=== PATIENT | female | born 1985 | race Caucasian/White ===

== ENCOUNTER 2017-02-15 17:03 | Emergency (ER) | payer OTHER ==
[~2017-02-15] VITALS: Ht 165.1 cm; Wt 77.1 kg
[~2017-02-15 17:03] MED LIST: ATIVAN1 MG PO; CIPRO500 MG PO; FAMVIR500 MG PO; FLEXERIL5 MG PO; Fioricet 325 MG1 TAB PO; HYDROCODONE BIT1 T11 PO; KLONOPIN0.5 MG PO; Motrin,Rufen800 MG PO; NAPROSYN500 MG PO; Orphenadrine C100 MG PO; PYRIDIUM100 MG PO; VOLTAREN50 M1 PO
== END 2017-02-15 17:45 | disposition home or self-care (01) ==
LOC: ED 17:03
DX: H60.392 Other infective otitis externa, left ear (principal); F17.200 Nicotine dependence, unspecified, uncomplicated

== ENCOUNTER 2017-07-13 14:09 | Emergency (ER) | payer OTHER ==
[~2017-07-13] VITALS: Ht 165.1 cm; Wt 78.9 kg
[2017-07-13] MEDS ORDERED: ACYCLOVIR800 MG PO ×2 (14:52→14:53)
[2017-07-13] MEDS ORDERED: NORCO 5-325 TA1 EACH PO (14:52)
== END 2017-07-13 14:58 | disposition home or self-care (01) ==
LOC: ED 14:09
DX: B02.9 Zoster without complications (principal); F17.200 Nicotine dependence, unspecified, uncomplicated; Z98.890 Other specified postprocedural states

== ENCOUNTER 2019-09-13 21:18 | Emergency (ER) | payer OTHER ==
[~2019-09-13] VITALS: Ht 165.1 cm; Wt 81.6 kg
[~2019-09-13 21:18] MED LIST changes: +ACYCLOVIR800 MG PO; +NORCO 5-325 TA1 EACH PO
== END 2019-09-13 23:23 | disposition home or self-care (01) ==
LOC: ED 21:18
DX: R51 Headache (principal); I10 Essential (primary) hypertension; F41.9 Anxiety disorder, unspecified; R11.0 Nausea

== ENCOUNTER 2020-01-23 14:26 | Emergency (ER) | payer OTHER ==
[~2020-01-23] VITALS: Ht 165.1 cm; Wt 81.6 kg
[2020-01-23 15:34] LABS: BASO # 0.1 10*3/uL (0.0-0.1); BASO % 0.5 % (0.0-1.0); EOS % 0.2 % (1.0-4.0); HEMATOCRIT 42.9 % (37.0-47.0); LYMPH # 1.6 10*3/uL (1.3-4.4); LYMPH % 15.3 % (27.0-41.0); MEAN CELL VOLUME 90.1 fl (81.0-99.0); MEAN CORPUSCULAR HGB 29.6 pg (27.0-31.0); MEAN CORPUSCULAR HGB CONC 32.9 g/dl (33.0-37.0); MEAN PLATELET VOLUME 11.3 fl (9.6-12.3); MONO # 0.9 10*3/uL (0.1-1.0); MONO % 8.2 % (3.0-9.0); NEUT # 8.1 10*3/uL (2.3-7.9); NEUT % 75.5 % (47.0-73.0); PLATELET COUNT AUTOMATED 232 10*3/uL (130-400); RED BLOOD COUNT 4.76 10*6/uL (4.10-5.10); WHITE BLOOD COUNT 10.7 10*3/uL (4.8-10.8)
[2020-01-23 15:34] LABS: BILIRUBIN NEGATIVE (NEGATIVE); BLOOD NEGATIVE (NEGATIVE); CLARITY SL CLOUDY (CLEAR); COLOR YELLOW (YELLOW); EPITHELIAL CELLS 21-30; GLUCOSE NEGATIVE (NEGATIVE); KETONE NEGATIVE (NEGATIVE); LEUKO ESTERASE NEGATIVE (NEGATIVE); NITRITE NEGATIVE (NEGATIVE); RBC 0-2 rbc/hpf (0-2); UROBILINOGEN 0.2 E.U./dl (0.2-1.0); WBC 0-2 wbc/hpf (0-5)
[2020-01-23 15:45] LABS: ACT PARTIAL THROMBO TIME 26.6 SECONDS (20.0-32.1)
[2020-01-23 15:58] LABS: ALBUMIN 3.9 gm/dl (3.1-4.5); ALKALINE PHOSPHATASE 51 U/L (45-117); BUN 12 mg/dl (7-24); CHLORIDE 108 mmol/L (98-107); CREATININE 0.84 mg/dL (0.55-1.02); LIPASE 45 U/L (73-393); POTASSIUM 3.4 mmol/L (3.5-5.1); SGOT/AST 8 IU/L (3-35); SGPT/ALT 18 U/L (12-78); SODIUM 138 mmol/L (136-145); TOTAL PROTEIN 7.5 gm/dL (6.4-8.2)
[2020-01-23 16:00] LABS: BETA-HCG, QUANT < 1.0 mIU/mL (1-3); TROPONIN I < 0.015 ng/ml (<0.045)
[2020-01-23] MEDS ORDERED: ATIVAN0.5 MG PO (17:29)
== END 2020-01-23 17:32 | disposition home or self-care (01) ==
LOC: ED 14:26
PROVIDERS: Emergency Medicine
DX: F41.9 Anxiety disorder, unspecified (principal)

== ENCOUNTER 2020-03-17 19:47 | Emergency (ER) | payer OTHER ==
[~2020-03-17] VITALS: Ht 165.1 cm; Wt 81.6 kg
[~2020-03-17 19:47] MED LIST changes: +ATIVAN0.5 MG PO
[2020-03-17 20:41] LABS: BASO # 0.1 10*3/uL (0.0-0.1); BASO % 0.5 % (0.0-1.0); EOS % 0.2 % (1.0-4.0); HEMATOCRIT 43.8 % (37.0-47.0); LYMPH # 2.5 10*3/uL (1.3-4.4); LYMPH % 20.4 % (27.0-41.0); MEAN CELL VOLUME 90.5 fl (81.0-99.0); MEAN CORPUSCULAR HGB CONC 33.1 g/dl (33.0-37.0); MEAN PLATELET VOLUME 11.6 fl (9.6-12.3); MONO # 1.3 10*3/uL (0.1-1.0); MONO % 10.2 % (3.0-9.0); NEUT # 8.5 10*3/uL (2.3-7.9); NEUT % 68.5 % (47.0-73.0); PLATELET COUNT AUTOMATED 238 10*3/uL (130-400); RED BLOOD COUNT 4.84 10*6/uL (4.10-5.10); RED CELL DISTRI WIDTH 12.2 % (0-14.5); WHITE BLOOD COUNT 12.4 10*3/uL (4.8-10.8)
[2020-03-17 20:57] LABS: ALBUMIN 4.2 gm/dl (3.1-4.5); ALKALINE PHOSPHATASE 48 U/L (45-117); BUN 11 mg/dl (7-24); CHLORIDE 108 mmol/L (98-107); CREATININE 0.84 mg/dL (0.55-1.02); POTASSIUM 3.4 mmol/L (3.5-5.1); SGOT/AST 4 IU/L (3-35); SGPT/ALT 15 U/L (12-78); SODIUM 140 mmol/L (136-145); TOTAL PROTEIN 7.9 gm/dL (6.4-8.2)
[2020-03-17] MEDS ORDERED: PROPRANOLOL HCL80 M1 PO (21:28)
[2020-03-17] MEDS ORDERED: PROPRANOLOL HCL40 MG PO (21:29)
== END 2020-03-17 21:45 | disposition home or self-care (01) ==
LOC: ED 19:47
PROVIDERS: Physician Assistant
DX: R51 Headache (principal); R03.0 Elevated blood-pressure reading, without diagnosis of hypertension; Z79.899 Other long term (current) drug therapy